=== PATIENT | male | born 1950 | race Caucasian/White ===

== ENCOUNTER 2018-12-10 10:09 | Emergency (ER) | payer MEDICARE, MEDICAID ==
[~2018-12-10] VITALS: Ht 154.9 cm; Wt 70.0 kg
[2018-12-10 10:43] VITALS: BP 184/93
[2018-12-10] MEDS ORDERED: TETanus/Pertussis (Acell)/Diphther VAC/PF (Tdap-Adult) 0.5ml syringe IM ONE (11:20)
[2018-12-10] MEDS ORDERED: LIDOcaine 1% w/epiNEPHrine 1:200,000 30ml vial IM ONE (11:20)
== END 2018-12-10 12:28 | disposition home or self-care (01) ==
LOC: ER 10:17
DX: S01.311A Laceration without foreign body of right ear, initial encounter (principal); I10 Essential (primary) hypertension; E11.9 Type 2 diabetes mellitus without complications; R62.50 Unspecified lack of expected normal physiological development in childhood; W18.49XA Other slipping, tripping and stumbling without falling, initial encounter; Y93.89 Activity, other specified; Y92.89 Other specified places as the place of occurrence of the external cause; Y99.9 Unspecified external cause status
CPT/HCPCS: 12011; 90471; 99284

== ENCOUNTER 2021-02-24 18:20 | Emergency (ER) | payer MEDICARE, MEDICAID ==
[~2021-02-24] VITALS: Ht 149.9 cm; Wt 79.5 kg
[2021-02-24 18:28] VITALS: BP 122/71
[2021-02-24] MEDS ORDERED: DICL100G30 TOP (22:56)
== END 2021-02-24 23:33 | disposition home or self-care (01) ==
LOC: ER 18:20
DX: S80.812A Abrasion, left lower leg, initial encounter (principal); I10 Essential (primary) hypertension; E11.9 Type 2 diabetes mellitus without complications; F79 Unspecified intellectual disabilities; W19.XXXA Unspecified fall, initial encounter; Y93.89 Activity, other specified; Y92.89 Other specified places as the place of occurrence of the external cause; Y99.8 Other external cause status
CPT/HCPCS: 29505; 73560; 99283

== ENCOUNTER 2022-12-27 19:52 | Emergency (ER) | payer MEDICARE, MEDICAID ==
[~2022-12-27] VITALS: Ht 152.4 cm; Wt 70.0 kg
[~2022-12-27 19:52] MED LIST: DICL100G59 TOP
[2022-12-27 20:00] VITALS: BP 121/96; PULSE 62; RESP 16; TEMP 97.8; O2SAT 97
[2022-12-27] MEDS ORDERED: TETanus/Pertussis (Acell)/Diphther VAC/PF (Tdap-Adult) 0.5ml syringe IMVAC ONE (20:10)
[2022-12-27] MEDS ORDERED: ceFAZolin 1gm IM kit IM ONE (21:55)
[2022-12-27] MEDS ORDERED: SULF1TAB49 PO (22:24)
[2022-12-27] MEDS ORDERED: IBUP-1984 PO (22:24)
[2022-12-27] MEDS ORDERED: AMOX-117 PO (22:24)
--- NOTE | 2022-12-27 22:25 | NUR ---
DRESSING APPLIED TO SUTURE REPAIR SITE POST OP SHOE APPLIED TO LT FOOT
== END 2022-12-27 22:48 | disposition home or self-care (01) ==
LOC: ER 19:53
DX: S91.312A Laceration without foreign body, left foot, initial encounter (principal); I10 Essential (primary) hypertension; E11.9 Type 2 diabetes mellitus without complications; Z79.1 Long term (current) use of non-steroidal anti-inflammatories (NSAID); W01.0XXA Fall on same level from slipping, tripping and stumbling without subsequent striking against object, initial encounter; Y93.89 Activity, other specified; Y92.89 Other specified places as the place of occurrence of the external cause; Y99.8 Other external cause status
CPT/HCPCS: 12001; 73502; 73552; 73630; 90471; 90715; 96372; 99284; J0690; L3260